=== PATIENT | female | born 1975 | race African-American/Black ===

== ENCOUNTER 2019-01-19 09:00 | Emergency (ER) | payer MEDICAID ==
[~2019-01-19] VITALS: Ht 152.4 cm; Wt 59.0 kg
[2019-01-19 12:29] LABS: CHLORIDE 105 mEq/L (98-107)
[2019-01-19 12:30] LABS: BASOPHILS % 0.4 % (0.0-2.0); EOSINOPHILS % 0.4 % (0.0-5.0); HEMATOCRIT. 36.1 % (36.0-48.0); HEMOGLOBIN. 11.6 g/dL (12.0-16.0); LYMPHOCYTES % 23.9 % (20.0-50.0); MEAN CORPUSCULAR HEMOGLOBIN 26.2 pg (28.0-32.0); MEAN CORPUSCULAR VOLUME 81.8 fL (81.0-99.0); MEAN PLATELET VOLUME 8.3 fl (7.4-10.4); MONOCYTES % 7.6 % (2.0-8.0); NEUTROPHILS % 67.7 % (40.0-76.0); PLATELET 259 x1000/uL (130-400); RED BLOOD CELL COUNT 4.41 mill/uL (4.2-5.4); RED CELL DISTRIBUTION WIDTH 16.3 % (11.6-14.6)
[2019-01-19 12:40] LABS: HCG SCREEN NEGATIVE
[2019-01-19] MEDS ORDERED: IOHEXOL-350 100 ML BOTTLE ONE (16:54)
[2019-01-19 18:17] VITALS: BP 101/68
== END 2019-01-19 18:42 | disposition home or self-care (01) ==
LOC: ER 09:00
DX: R07.89 Other chest pain (principal); F17.210 Nicotine dependence, cigarettes, uncomplicated
CPT/HCPCS: 36415; 71045; 71275; 80053; 81025; 83880; 84484; 84703; 85025; 85379; 93005; 99284; Q9967

== ENCOUNTER 2019-08-25 12:09 | Emergency (ER) | payer SELFPAY ==
[~2019-08-25] VITALS: Ht 152.4 cm; Wt 59.0 kg
[2019-08-25] MEDS ORDERED: ACETAMINOPHEN 325MG TABLET PO ONE (14:30)
[2019-08-25 15:01] LABS: BASOPHILS % 0.6 % (0.0-2.0); EOSINOPHILS % 0.2 % (0.0-5.0); HEMATOCRIT. 35.8 % (36.0-48.0); HEMOGLOBIN. 11.8 g/dL (12.0-16.0); MEAN CORPUSCULAR HEMOGLOBIN 27.4 pg (28.0-32.0); MEAN CORPUSCULAR VOLUME 82.9 fL (81.0-99.0); MEAN PLATELET VOLUME 8.8 fl (7.4-10.4); MONOCYTES % 10.3 % (2.0-8.0); NEUTROPHILS % 62.9 % (40.0-76.0); PLATELET 246 x1000/uL (130-400); RED BLOOD CELL COUNT 4.32 mill/uL (4.2-5.4); RED CELL DISTRIBUTION WIDTH 16.1 % (11.6-14.6)
[2019-08-25 15:02] LABS: CHLORIDE 105 mEq/L (98-107)
[2019-08-25 15:09] LABS: CLARITY URINE CLEAR (CLEAR); COLOR URINE YELLOW (YELLOW); KETONES URINE NEGATIVE (NEGATIVE); LEUKOCYTE ESTERASE URINE NEGATIVE (NEGATIVE); NITRITE URINE NEGATIVE (NEGATIVE); OCCULT BLOOD URINE NEGATIVE (NEGATIVE); PROTEIN URINE NEGATIVE (NEGATIVE); SPECIFIC GRAVITY URINE 1.014 (1.005-1.030); UROBILINOGEN URINE 0.2 E.U./dL (0.2-1.0)
[2019-08-25 15:30] VITALS: BP 105/66
== END 2019-08-25 15:46 | disposition home or self-care (01) ==
LOC: ER 12:09
DX: R53.1 Weakness (principal); R05 Cough; R53.83 Other fatigue
CPT/HCPCS: 36415; 71045; 81003; 81025; 99283

== ENCOUNTER 2021-09-24 14:50 | Emergency (ER) | payer MEDICAID ==
[~2021-09-24] VITALS: Ht 162.6 cm; Wt 73.0 kg
[2021-09-24] MEDS ORDERED: MORPHINE SULFATE 10 MG/ML CPJ IM ONE (16:00)
[2021-09-24] MEDS ORDERED: HYDR-4001 PO (18:09)
[2021-09-24 18:12] VITALS: BP 142/114
[2021-09-24] MEDS ORDERED: IBUPROFEN 600MG TABLET PO NR (18:12)
== END 2021-09-24 21:31 | disposition home or self-care (01) ==
LOC: ER 14:50
DX: M25.571 Pain in right ankle and joints of right foot (principal); Z98.890 Other specified postprocedural states
CPT/HCPCS: 73610; 81025; 96372; 99283; J2270; Z7610